=== PATIENT | male | born 1960 | race Caucasian/White ===

== ENCOUNTER 2018-05-29 21:11 | Inpatient (IN) | payer MEDICARE ==
[~2018-05-29] VITALS: Ht 170.2 cm; Wt 86.0 kg
[~2018-05-29 21:11] MED LIST: FLEXERIL PO; NORCO 5-325 TA1 EAC1 PO
[2018-05-29 21:23] VITALS: BP 120/72
[2018-05-29] MEDS ORDERED: NEURONTIN 300300 M1 PO (21:29)
[2018-05-29] MEDS ORDERED: DICLOFENAC SODI25 MG PO (21:29)
[2018-05-29] MEDS ORDERED: FLEXERIL PO (21:30)
[2018-05-29 22:04] LABS: HEMATOCRIT 44.3 % (42.0-52.0); HEMOGLOBIN 14.6 gm/dL (14.0-18.0); MCH 30.2 pg (26.0-34.0); MCV 91.5 fL (80.0-100.0); MPV 9.2 fl. (7.2-11.1); NUCLEATED RBCS 0 /100WBC; PLATELET COUNT* 217 thou/uL (150-400); RBC 4.84 mil/uL (4.50-6.00); RDW-CV 13.8 % (10.5-14.5); WBC 18.9 thou/uL (4.0-11.0)
[2018-05-29 22:11] LABS: INR 1.1; PROTIME 11.1 Seconds (9.20-11.50)
[2018-05-29 22:12] LABS: CALCIUM 8.4 mg/dL (8.5-10.1); CREATININE 1.4 mg/dL (0.6-1.3); POTASSIUM 3.5 mmol/L (3.5-5.1)
[2018-05-29 22:16] LABS: ALBUMIN 2.9 g/dL (3.4-5.0); TOTAL BILIRUBIN 0.5 mg/dL (<0.1-1.0); TOTAL PROTEIN 7.1 g/dL (6.4-8.2)
[2018-05-29 22:26] LABS: URINE BILIRUBIN NEGATIVE (Negative); URINE BLOOD TRACE (Negative); URINE CLARITY CLEAR; URINE COLOR YELLOW; URINE GLUCOSE-RANDOM NEGATIVE (Negative); URINE KETONES NEGATIVE (Negative); URINE LEUKOCYTES-REFLEX NEGATIVE (Negative); URINE NITRITE-REFLEX NEGATIVE (Negative); URINE PROTEIN 1+ (Negative); URINE SPECIFIC GRAVITY 1.025 (1.005-1.030); URINE UROBILINOGEN 0.2 E.U./dl (0.2-1.0)
[2018-05-29 23:37] LABS: ABSOLUTE LYMPHOCYTES 0.8 thou/uL (0.8-5.3); ABSOLUTE MONOCYTES 1.1 thou/uL (0.0-1.2); ANISOCYTOSIS Occasional; PLATELET ESTIMATE ADEQUATE; TOXIC GRANULATION 1+
[2018-05-30] VITALS (7 sets, daily range): BP systolic 108–123; BP diastolic 52–67
[2018-05-30] MEDS ORDERED: GABAPENTIN 100100 MG PO (01:15)
--- NOTE | 2018-05-30 03:38 | NUR ---
PT ARRIVED FROM ED AT AROUND 0100. PT WAS ACCOMPANIED BY SOME FAMILY, ABLE TO WALK TO THE BED WITH SOME LIMPING NOTED FROM PT LEFT KNEE. ABLE TO MAKE NEEDS KNOWN, ANSWERED QUESTIONS APPROPRIATELY. C/O ABDOMINAL PAIN AND SOME ABDOMINAL SWELLING NOTED. PRN PAIN MEDICATIONS GIVEN PER P.O. WILL CONTINUE TO MONITOR.
[2018-05-30 05:11] LABS: HEMOGLOBIN 13.5 gm/dL (14.0-18.0); MCH 30.1 pg (26.0-34.0); MCV 91.3 fL (80.0-100.0); MPV 9.4 fl. (7.2-11.1); RBC 4.49 mil/uL (4.50-6.00); RDW-CV 13.4 % (10.5-14.5); WBC 16.1 thou/uL (4.0-11.0)
[2018-05-30 05:38] LABS: ALBUMIN 2.5 g/dL (3.4-5.0); CALCIUM 7.4 mg/dL (8.5-10.1); CREATININE 1.1 mg/dL (0.6-1.3); POTASSIUM 3.6 mmol/L (3.5-5.1); TOTAL BILIRUBIN 0.5 mg/dL (<0.1-1.0); TOTAL PROTEIN 5.3 g/dL (6.4-8.2)
--- NOTE | 2018-05-30 10:32 | EKG ---
[place] [address] ELECTROCARDIOGRAM REPORT Name: NITO POZO Room: [address] ADM IN .R.#: [id number] Admission: 05/30/18 Attend Phys: Juan Jaramillo MD Discharge: Date of : 58 Report #: [id number] THIS REPORT FOR: //name// [facility] ED Test Date: 2018-05-29 Test Time: 22:07:22 Pat Name: NITO POZO Department: Room: [facility] Gender: M Search Developer: : 1960 Requested By: Malka Valladares Order Number: [id number] MD: Rob Garcia Measurements Intervals [place] Rate: 85 P: 75 LA: 154 QRS: 57 QRSD: 99 T: 1 QT: 353 QTc: 420 Interpretive Statements Sinus rhythm Compared to ECG 12/30/2015 10:31:08 No significant changes Electronically Signed On 05-30-2018 10:32:49 CDT by Rob Garcia [email or web address] <ELECTRONICALLY SIGNED> By: Rob Garcia MD, [facility] 05/30/18 1032 06 06 Rob Garcia MD, FACC /EPI
--- NOTE | 2018-05-30 11:18 | NUR ---
RECEIVED REPORT FROM BRITT PERERA. ASSUMED CARE OF PT AROUND 0730. PT A&O X4. VSS, SLIGHT TEMP OF 100.4 NOTED. O2 SAT 93% ON 2L PER NC. EXCELSIOR MACHINE TENDER IN PLACE TRACING SR. AM ASSESSMENT AND VITALS COMPLETED CHARTED. IV TO LEFT AC INTACT AND INFUSING IVF. PT REPORTS ABDOMINAL PAIN 10/10, IV PAIN MEDICATION GIVEN WITH LITTLE RELIEF. BELLY FIRM, DISTENDED AND TENDER. BOWEL SOUNDS PRESENT IN ALL 4 QUADRANTS. FAMILY AT BEDSIDE. PT NPO FOR SURGERY TODAY. PT ABLE TO USE URINAL AT THE BEDSIDE. PACU ARRIVED TO TRUCK ASSEMBLER PT AROUND 1115 - ANTIBIOTICS SENT. CONSENTS IN CHART. PREOPERATIVE CHECKLIST COMPLETE. WILL AWAIT PT RETURN TO UNIT.
--- NOTE | 2018-05-30 11:44 | NUR ---
Pt is A&O. Resides at home with his . Independent with ADLS. No DME. No hx of HH or SNF. Supportive family. Surgery today. Goal is home at dc. Following.
[2018-05-30 16:37] LABS: URINE BILIRUBIN NEGATIVE (Negative); URINE BLOOD 3+ (Negative); URINE COLOR YELLOW; URINE GLUCOSE-RANDOM NEGATIVE (Negative); URINE KETONES NEGATIVE (Negative); URINE LEUKOCYTES-REFLEX TRACE (Negative); URINE NITRITE-REFLEX NEGATIVE (Negative); URINE PROTEIN TRACE (Negative); URINE SPECIFIC GRAVITY 1.015 (1.005-1.030); URINE UROBILINOGEN 0.2 E.U./dl (0.2-1.0)
[2018-05-30 16:38] LABS: URINE CLARITY HAZY
[2018-05-30 16:45] LABS: SQUAMOUS 4-10 Moderate /LPF (0-3); WBC CLUMPS Few (None Seen)
[2018-05-30 16:46] LABS: BACTERIA-REFLEX 1-9 Few /HPF (None Seen); CASTS None Seen /LPF (None Seen); CRYSTALS None Seen /LPF (None Seen); MUCUS None Seen strn/LPF (None Seen); URINE RBC >20 Many /HPF (0-2); URINE WBC-REFLEX 6-15 Few /HPF (0-5)
--- NOTE | 2018-05-30 19:58 | NUR ---
PT RETURNED FROM PACU AROUND 1442. VSS. CONTINUOUS O2 SATURATION IN PLACE, 02 SATS >90% ON 3L PER NC. IV TO LEFT WRIST INTACT AND INFUSING IVF. BURLAP SPREADER PLACED TRACING SR. PT REPORTS PAIN TO ABDOMEN AND HAS RECEIVED IV PAIN MEDICATION WITH PARTIAL RELIEF. PT ENCOURAGED TO GET OUT OF BED TO FACILITATE PASSING GAS AND EASE SORENESS. PT ABLE TO AMBULATE TO BATHROOM WITH ASSITANCE AND OXYGEN DURING SHIFT CHANGE TO VOID. FAMILY AT BEDSIDE. PT REMAINS NPO EXCEPT ICE CHIPS DUE TO BOWEL ILLEUS. 3 LAP SITES TO ABDOMEN NOTED - NO S/S OF INFECTION. BELLY REAMINS DISTENDED AND TENDER, BOWEL SOUNDS PRESENT. PT CURRENTLY RESTING IN BED. FALL PRECAUTIONS IN PLACE. CALL LIGHT IS WITHIN REACH. HOURLY ROUNDING PERFORMED.
[2018-05-31] VITALS: BP 113/66
[2018-05-31 04:00] VITALS: BP 112/65
[2018-05-31 04:36] LABS: ABSOLUTE LYMPHOCYTES 0.4 thou/uL (0.8-5.3); ABSOLUTE MONOCYTES 1.6 thou/uL (0.0-1.2); ABSOLUTE NEUTROPHILS 11.2 thou/uL (1.6-8.1); BASOPHILS 0.1 %; HEMATOCRIT 38.7 % (42.0-52.0); HEMOGLOBIN 12.8 gm/dL (14.0-18.0); LYMPHOCYTES 2.9 %; MCH 30.7 pg (26.0-34.0); MCHC 33.1 g/dL (28.0-37.0); MCV 92.5 fL (80.0-100.0); MONOCYTES 12.1 %; MPV 9.2 fl. (7.2-11.1); NUCLEATED RBCS 0 /100WBC; PLATELET COUNT* 224 thou/uL (150-400); POLYS 84.9 %; RBC 4.18 mil/uL (4.50-6.00); RDW-CV 13.7 % (10.5-14.5); WBC 13.2 thou/uL (4.0-11.0)
[2018-05-31 04:48] LABS: CALCIUM 7.5 mg/dL (8.5-10.1); POTASSIUM 4.5 mmol/L (3.5-5.1)
--- NOTE | 2018-05-31 06:32 | NUR ---
ASSUMED PT CARE AT 1930. NURSING ASSESSMENT COMPLETED AT START OF SHIFT. PT TRACING SINUS RHYTHM ON BLIND INSTALLER. PRN PAIN MEDICATION ADMINISTERED X2 THIS SHIFT. PT UP TO BATHROOM X1 THIS SHIFT WITH WALKER. CALL LIGHT WITHIN REACH, FLUIDS INFUSING. NO CONCERNS VOICED THIS SHIFT.
[2018-05-31 08:00] VITALS: BP 122/77
--- NOTE | 2018-05-31 11:41 | NUR ---
CONTINUE TO FOLLOW, PT STATES HAVING SOME PAIN TODAY, LYING IN BED. ENCOURAGED HIM TO TRY TO TCDB Q2HR AND GAVE HIM A SPLINT BLANKET. PT STATES HE LIVES WITH HIS AND 3 CHILDREN. HE PLANS TO RETURN HOME AT [place]. WILL FOLLOW
[2018-05-31 16:14] VITALS: BP 130/65
--- NOTE | 2018-05-31 18:54 | NUR ---
PATINET RESTING IN BED. UP WITH ASSSIT X1 AND WALKER USAGE. VITAL SIGNS STABLE AND ABD SURGICAL WOUNDS CLEAN/DRY/INTACT WITH NO DRAINAGE. PATINET DID HAVE LARGE BOWEL MOVEMENT TO AND DIET WAS ADVANCED TO CLEAR LIQUID. HOURLY ROUNDING COMPLETD FOR PATIENT SAETY
[2018-05-31 20:00] VITALS: BP 140/82
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
[2018-06-01] VITALS: BP 139/74
[2018-06-01 04:43] LABS: HEMATOCRIT 39.1 % (42.0-52.0); HEMOGLOBIN 12.8 gm/dL (14.0-18.0); MCH 30.3 pg (26.0-34.0); MCHC 32.8 g/dL (28.0-37.0); MCV 92.4 fL (80.0-100.0); MPV 8.9 fl. (7.2-11.1); NUCLEATED RBCS 0 /100WBC; PLATELET COUNT* 249 thou/uL (150-400); RBC 4.24 mil/uL (4.50-6.00); WBC 9.9 thou/uL (4.0-11.0)
[2018-06-01 05:01] LABS: ALBUMIN 2.2 g/dL (3.4-5.0); CALCIUM 7.7 mg/dL (8.5-10.1); POTASSIUM 4.5 mmol/L (3.5-5.1); TOTAL BILIRUBIN 0.4 mg/dL (<0.1-1.0); TOTAL PROTEIN 5.6 g/dL (6.4-8.2)
--- NOTE | 2018-06-01 05:54 | NUR ---
ASSUMED PT CARE AT 1930. NURSING ASSESSMENT COMPLETED AT START OF SHIFT. PT VOICED NO CONCERNS THIS SHIFT. HOURLY ROUNDING COMPLETED. PT CONTINUES ON LOOM OVERHAULER, TRACING SINUS RHYTHM, PRN PAIN MEDICATION ADMINISTERED THIS SHIFT, SEE EMAR FOR DOCUMENTATION. FALL PRECAUTIONS IN PLACE. ABDOMINAL LAP SITES CDI, NO S/S OF INFECTION. CALL LIGHT WITHIN REACH.
[2018-06-01 05:55] LABS: ABSOLUTE LYMPHOCYTES 1.3 thou/uL (0.8-5.3); ABSOLUTE MONOCYTES 0.8 thou/uL (0.0-1.2); ABSOLUTE NEUTROPHILS 7.8 thou/uL (1.6-8.1); ANISOCYTOSIS 1+; PLATELET ESTIMATE ADEQUATE; POIKILOCYTOSIS 1+
[2018-06-01 08:00] VITALS: BP 138/71
--- NOTE | 2018-06-01 10:00 | NUR ---
VSS, ASSUMED CARE IN AM, ASSESSMENT PERFORMED AND CHARTED, FALL PRECAUTIONS IN PLACE AND CALL LIGHT IN PLACE, PT IS A&O4 ON 1L NC AND IS MED-SURG STATUS, PT HAS PAIN IN ABDOMINE, IS UP WITH ONE AND WALKER, PT GOAL IS TO IMPROVE BREATHING AND COME OFF O2 NEEDS, AND SIT UP IN CHAIR, WILL FOLLOW WITH PLAN OF CARE.
[2018-06-01 12:00] VITALS: BP 115/95
[2018-06-01 16:29] VITALS: BP 149/83
--- NOTE | 2018-06-01 18:08 | PATH ---
[address] [address] PATHOLOGY RPT PROCEDURE Name: JOHNNY POZO Room: [address] IN ..#: [id number] Admission: 05/30/18 Date of : 58 Discharge: Report #: [id number] Path Case #: [id number] [facility] Accession Number: [id number] . 01 Material submitted: . APPENDIX . 01 Clinical history: . Ruptured appendix, ileus . 02 Diagnosis: Appendix: - Disrupted, acute gangrenous appendicitis, periappendicitis and serositis. . (RUBI:mml; 06/01/18) [facility]/06/01/2018 . 02 Electronically signed: . Terry Medina MD, Pathologist NPI- [id number] . 01 Gross description: . Received in formalin labeled "Johnny Pozo, appendix" is a disrupted, ragged, red maroon, and garcia appendix received in 2 segments (3.7 x 2.0 cm and 5.5 x 2.5 cm). The shorter segment is consistent with distal half and the longer, proximal half. There is prominent serosal exudate. Sectioning the smaller fragment reveals dark red and yellow parenchyma with no obvious lumen identified. The longer segment shows Probable obliteration (perforation) of the distal segment. Sectioning reveals marked transmural necrosis. The mucosa is sherman-black and focally green. The margin is inked black and the distal end blue. Board Certified Arts Therapist sections are submitted A1-A3. JBR/JBR . 02 Pathologist provided ICD-10: K35.80 . 02 CPT . 362492 Performed at: [address], [place] [id number] MD Zafar Rose MD Phone: [phone] Performed at: 02 [facility] [address], [place], [place] [id number] MD Terry Medina MD Phone: [phone]
--- NOTE | 2018-06-01 18:59 | NUR ---
VSS, PT IS PROGRESSING TOWARDS GOAL, PT HAS BEEN UP IN CHAIR AND IS TOLERATING HIS DIET, PT HAS SOME PAIN IN BELLY, PT IS ON RA NOW AND IS MED-SURG STATUS, HOURLY ROUNDS COMPLETED. PT IS UP WITH ONE AND WALKER
[2018-06-01 19:51] VITALS: BP 139/65
[2018-06-02] VITALS: BP 142/85
--- NOTE | 2018-06-02 06:02 | NUR ---
END SHIFT: PT PROGRESSING TOWARDS GOALS WELL. ABLE TO GET IN AND OUT OF BED WITHOUT ASSISTANCE. VOIDING WITHOUT DIFFICULTY. POSITIVE BS X4 QUADS, PASSING GAS FREQUENTLY AND HAD LAST REGULAR BM YESTERDAY. PT IS TOLERATING SOFT FOODS WELL WITH NO N/V. PT STATES HE FEELS LIKE HE IS GETTING STRONGER AND IS READY TO GO HOME. PT STATES THAT HE HAS HIS AND OTHER FAMILY MEMBERS LIVING IN THE HOME THAT CAN HELP HIM UNTIL HE FULLY RECOVERS. VSS. AFEBRILE. INCISIONS ARE CDI, AND OOT WITH NO OOZING. NAVEL INCISION IS A LITTLE REDDENED AND WARM TO TOUCH IN SURROUNDING TISSUE. PERFORMED HOURLY ROUNDING. SAFETY PRECAUTIONS IN PLACE. CALL LIGHT IN REACH. WILL CONT TO MONITOR.
--- NOTE | 2018-06-02 07:42 | OP ---
[address] [address] OPERATIVE REPORT Name: NITO POZO Room: [address] IN M.R.#: [id number] Admission: 05/30/18 Attend Phys: Juan Jaramillo MD Discharge: Date of : 58 Report #: [id number] THIS REPORT FOR: //name// CC: Lisset Jaramillo DATE OF SERVICE: 05/30/2018 PREOPERATIVE DIAGNOSIS: Perforated appendicitis. POSTOPERATIVE DIAGNOSIS: Perforated appendicitis. OPERATIVE PROCEDURE: Laparoscopic appendectomy with drainage of intra-abdominal abscess. ANESTHESIA: General endotracheal with 0.5% Marcaine infiltrated in the wound site. DESCRIPTION OF PROCEDURE: The patient was placed under general endotracheal anesthesia, and the abdomen was shaved, prepped and draped in a sterile fashion. A timeout taken. Antibiotics administered. I began by infiltrating in the infraumbilical crease with 0.5% Marcaine. I then used the pickups and made a transverse incision in the infraumbilical crease and used pickups and cautery to dissect down to the anterior abdominal wall with the aid of S retractors. The fascia was lifted up, cleared with cautery and then divided with a fresh scalpel blade and then blunt dissection with a mosquito into the peritoneal cavity was accomplished without injury to underlying abdominal viscera. An 0 PDS was looped through this incision site, and a size 12 Shane trocar was placed into the peritoneal cavity and secured at the skin. Insufflation with carbon dioxide was completed and a 5 mm 0 degree scope was inserted. The right lower quadrant was inspected and had some purulence and adhesions from the ruptured appendix. The right upper abdomen infiltrated with 0.5% Marcaine, made a small stab and incision there and placed a 5 mm trocar there and with the aid of the irrigating device and the camera, I was able to tease away the right lower quadrant tissues to unroof the inflamed appendix and tease away enough clearance to the suprapubic area to place a third port, which was then again infiltrated in the suprapubic region. A small stab incision and a 5 mm bladeless trocar were placed at the operative site. The patient then was placed in Trendelenburg and left lateral decubitus position. The appendix, which was necrotic at its tip, but still inflamed at its base and at the cecal junction, was slowly and carefully teased and manipulated. Using a ligature, I dissected the mesoappendix until the appendix could be lifted up and the appendiceal cecal base could be completely exposed. Endo-RICKY 30 was brought on to the field with a white load placed across the base of the appendiceal cecal junction and carefully fired freeing the appendix from its attachment. I then removed the stapler, brought in an Endopouch and placed the appendix [place] [address] OPERATIVE REPORT Name: NITO POZO Room: [address] IN ..#: [id number] Admission: 05/30/18 Attend Phys: Juan Jaramillo MD Discharge: Date of : 58 Report #: [id number] and placed it in the pouch, closed it and retrieved it from the umbilical incision site. Then, I replaced the trocar and then inspected the abdomen and did 1500 mL irrigation of the lower abdomen and upper abdomen and aspirated as much of the free fluid as I could and the fluid started coming back clear. I ended by irrigation. I then removed all trocars, instruments, deflated pneumoperitoneum and placed the patient back in neutral position. The 0 PDS was tied and then infiltrated with 0.5% Marcaine. The four incisions were then closed with buried 4-0 PDS sutures and sealed with Dermabond. ESTIMATED BLOOD LOSS: 10 mL. Sponge, instrument counts correct. The patient was returned to recovery in stable condition. <ELECTRONICALLY SIGNED> By: Marielena Pompa MD 06/02/18 0742 1329 [id number] Pompa MD /deny
[2018-06-02 08:00] VITALS: BP 159/79
--- NOTE | 2018-06-02 10:38 | NUR ---
ASSUMED CARE OF PT THIS AM AROUND 714- MED SURG STATUS IN PLACE AND MAINTAINED- UPON ASSESSMENT PT NOTED TO BE RESTING IN BED- PT A&O X4- CONTINENT OF BOWEL AND BLADDER- UP SBA WITH RW FOR SAFETY- LCTA, RESP EVEN AND UN-LABORED- VSS, O2 SAT 95% ON RA- ABDOMEN SOFT/ROUND/SLIGHT TENDERNESS NOTED- 3 ABD INCISSIONS NOTED, TERRA AND HEALING WELL-PT REPORTS TO HAVE HAD BM THIS AM- IV NOTED TO LEFT FA INTACT, IVF INFUSSING PRESCIBED- IV ABT GIVEN PRESCIBED-DIET ADVANCED TO REGULAR THIS AM, GOOD PO INTAKE NOTED WITH BREAKFAST- PT DENIES ANY C/O PAIN/DISCOMFORT AT THIS TIME- CALL LIGHT AND PERSONAL BELONGINGS WITH IN REACH- HOURLY ROUNDS IN PLACE R/T SAFETY/NEEDS- ALL NEEDS MET AT THIS TIME-WCTM
[2018-06-02 10:59] VITALS: BP 159/79
--- NOTE | 2018-06-02 14:36 | NUR ---
CONTINUE TO FOLLOW, MET WITH PT AND FAMILY. STATES FEELING MUCH BETTER AND HOPES TO GO HOME TOMORROW. PT HAS GOOD FAMILY SUPPORT AND DENIES DC NEEDS.
[2018-06-02 15:50] VITALS: BP 142/81
--- NOTE | 2018-06-02 17:32 | NUR ---
PT CURRENTLY RESTING IN BED, EATING DINNER- FAMILY AT SIDE VISITING- M/S STATUS IN PLACE AND MAINTAINED- GOOD PO INTAKE NOTED WITH MEALS THIS SHIFT, REPORTS TO BE TOLERATING REGULAR DIET WELL- UP TO CHAIR WITH MEALS THIS SHIFT, TOLERATING WELL- PO PRN HYDROCODONE STARTED THIS SHIFT- PRN HYDROCODONE GIVEN AT 1430 FOR REPORTED ABD PAIN- PT REPORTS PO PAIN MEDICATIONS TO BE WORKING WELL- CALL LIGHT AND PERSONAL BELONGINGS WITH IN REACH- ALL NEEDS MET AT THIS TIME-WCTM
[2018-06-02 20:00] VITALS: BP 152/85
[2018-06-03] VITALS: BP 158/81
--- NOTE | 2018-06-03 04:19 | NUR ---
ASSUMED PT CARE AT 1930. ASSESSMENT COMPLETED CHARTED. C/O STOMACH PAIN AND GAVE PRN PAIN MEDICATION. UP WITH STANDBY, ABLE TO MAKE NEEDS KNOWN, WILL CONTINUE TO MONITOR.
[2018-06-03 08:00] VITALS: BP 144/81
--- NOTE | 2018-06-03 09:21 | NUR ---
ASSUMED PT CARE AT 0730, FULL ASSESMENT DONE CHARTED.PT A/O X4, C/O SOME PAIN IN ABDOMEN AT 4/10, PAIN MEDS CONTROLING IT WELL. PT REPORTS STOOLS EVERY DAY POST OP WITH SOME LOOSE STOOLS AND PASSING GAS. GOOD APITITE, TOLERATING FOOD WELL. PTS VSS, M/S STATUS, PT HOPES TO GO HOME TODAY, ASKING FOR PAIN MED SCRIPT. FALL PRECAUTIONS IN PLACE, CALL LIGHT IN REACH. WILL CONTINUE WITH PLAN OF CARE
[2018-06-03 11:56] VITALS: BP 144/84
[2018-06-03] MEDS ORDERED: AUGMENTIN 875-1 EACH PO (11:56)
[2018-06-03] MEDS ORDERED: NORCO 5-325 TA1 EACH PO (12:30)
--- NOTE | 2018-07-06 12:30 | CON ---
[address] [address] CONSULTATION Name: NITO POZO Room: [address]#: [id number] Admission: 05/30/18 Attend Phys: Juan Jaramillo MD Discharge: 06/03/18 Date of : 58 Report #: [id number] THIS REPORT FOR: //name// CC: Lisset Jaramillo DATE OF SERVICE: 05/30/2018 ADMITTING DIAGNOSES: Abdominal pain, appendicitis. HISTORY OF PRESENT ILLNESS: The patient is a 57-year-old gentleman who presented to the Emergency Department on 05/29/2018 with history of 3 days of abdominal pain and distention, then localization to the right lower quadrant. PAST MEDICAL AND SURGICAL HISTORY: Only notable for chronic back pain and he has had surgical history of back surgery. MEDICATIONS: Include Voltaren, Neurontin, and Flexeril. ALLERGIES: He has no known drug allergies. SOCIAL HISTORY: Some tobacco usage. PHYSICAL EXAMINATION: GENERAL: He is a modestly obese, well-developed male. HEAD, EARS, EYES, NOSE, AND THROAT: Unremarkable. NECK: Supple. LUNGS: Clear. CARDIAC: Regular rate and rhythm without murmur. ABDOMEN: Some right lower quadrant tenderness, but no severe guarding. EXTREMITIES: No cyanosis or pitting edema. LABORATORY DATA: Upon presentation, CBC with white blood cell count of 18.9, hemoglobin 14.6, hematocrit 44.3, platelet count of 217,000. His electrolyte panel: Sodium of 134, potassium 3.5, chloride 95, carbon dioxide 29, BUN 47, creatinine 1.4, glucose of 125. His liver function studies were unremarkable. His urinalysis was negative and his imaging showed a chest x-ray with some atelectasis and a CT scan of the abdomen showing a renal cyst and dilated loops and small amount of fluid in the pelvis with an inflamed appendix consistent with ruptured appendicitis. IMPRESSION: A 57-year-old gentleman who presents with diagnosis of appendicitis, possible rupture. PLAN: I have talked to the patient about laparoscopic appendectomy[place] [address] CONSULTATION Name: NITO POZO Room: [address] IN [facility]#: [id number] Admission: 05/30/18 Attend Phys: Juan Jaramillo MD Discharge: 06/03/18 Date of : 58 Report #: [id number] associated risks and benefits and answered his questions. He understands those risks and benefits and wishes to proceed with my care. <ELECTRONICALLY SIGNED> By: Marielena Pompa MD 07/06/18 1230 0929 193Marielena Pompa MD /nt
== END 2018-06-03 12:55 | disposition home or self-care (01) | DRG 338 ==
LOC: M.ERS 21:11 → M.2W 05-30 00:01 → M.TBA-ER 05-30 00:01 → M.2W 05-30 00:18
PROVIDERS: Emergency Medicine; Internal Medicine
PROC: 0DTJ4ZZ Resection of Appendix, Percutaneous Endoscopic Approach (ICD-10-PCS; principal; 2018-05-30)
PROC: 0W9G4ZZ Drainage of Peritoneal Cavity, Percutaneous Endoscopic Approach (ICD-10-PCS; principal; 2018-05-30)
DX: K35.2 Acute appendicitis with generalized peritonitis (principal); N17.0 Acute kidney failure with tubular necrosis; R65.11 Systemic inflammatory response syndrome (SIRS) of non-infectious origin with acute organ dysfunction; J98.11 Atelectasis; G89.29 Other chronic pain; M54.9 Dorsalgia, unspecified; K35.3 Acute appendicitis with localized peritonitis; F17.210 Nicotine dependence, cigarettes, uncomplicated; Z79.2 Long term (current) use of antibiotics; Z79.899 Other long term (current) drug therapy

== ENCOUNTER 2021-02-25 11:37 | Inpatient (IN) | payer MEDICARE ==
[~2021-02-25] VITALS: Ht 170.2 cm; Wt 105.8 kg
--- NOTE | ~2021-02-25 | EMS ---
[facility] [address] [place] [address] EMS Patient Care Report Name: NITO POZO Room: [address] Garret#: [id number] Admission: 02/25/21 Attend Phys: Augustine Constantino MD Discharge: Date of : 58 Report #: [id number] THIS REPORT FOR: //name// Report Transmitted: 02/25/2021 19:28 EMS Care Summary [facility] Incident [id number] @ 02/25/2021 10:33 Incident Location [address] [place] [address] Patient NITO POZO Male, 60 Years 1960 Patient Address [address] [place] [address] Patient History Other, Patient Allergies No known allergies, Patient Medications None Reported, Chief Complaint ankle injury Disposition Transported No Lights/Notus Dispatch Reason Traumatic Injury Transported To [facility] Narrative Dispatched mutual aid to a residence for 60 y/o male with an ankle injury. 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 Pt. states that he was walking down steps and "twisted" his left ankle. Pt. left ankle was swollen and bruised with an ice pack in place. Poss. deformity was not clear due to swelling. Pt. had good pulse and [facility] [address] [place] [address] EMS Patient Care Report Name: NITO POZO Room: [address]#: [id number] Admission: 02/25/21 Attend Phys: Augustine Constantino MD Discharge: Date of : 58 Report #: [id number] cap. refill to the left foot. Pt. stated his pain was 6/10 while at rest. Left foot and ankle were splinted prior to movement. En route IV was started. Pt. refused drugs for pain management. VS were stable. Pt. was transported to [place] for emergency services. Initial Vitals @PTAP: 70,R: 20,BP: 140/90,Pain: 6/10,GCS: 15,SpO2: 94,Revised Trauma: 12, @11:05P: 70,R: 16,BP: 144/88,Pain: 6/10,GCS: 15,SpO2: 96,Revised Trauma: 12, @11:20P: 68,R: 16,BP: 135/92,Pain: 7/10,GCS: 15,SpO2: 95,Revised Trauma: 12, Assessments @10:57MENTAL:No Abnormalities,SKIN:No Abnormalities,HEENT:Head/Face: No Abnormalities,Eyes: No Abnormalities,Neck/Airway: No Abnormalities,LUNG SOUNDS:General: No Abnormalities,Left Upper: No Abnormalities,Right Upper: No Abnormalities,Left Lower: No Abnormalities,Right Lower: No Abnormalities,ABDOMEN:General: No Abnormalities,Left Upper: No Abnormalities,Right Upper: No Abnormalities,Left Lower: No Abnormalities,Right Lower: No Abnormalities,PELVIS//GI:No Abnormalities,EXTREMITIES:Left Leg: Other,Capillary Refill: Left Lower: < 2 Sec,Left Arm: No Abnormalities,Right Arm: No Abnormalities,Right Leg: No Abnormalities,PULSE:Pedal: 2+ Normal,NEURO:No Abnormalities, Impression Injury of Ankle Procedures @11:08Saline Lock 10cc (20 ga) Site: Forearm-LeftResponse: UnchangedSucceeded@11:00Splint Fx/Disloc.Response: ImprovedSucceeded Timeline [employer],BP: 140/90 M,PULSE: 70,RR: 20 R,SPO2: 94 Ox,ETCO2: ,BG: ,PAIN: 6,GCS: 15, 10:31,Call Received 10:33,Dispatched 10:33,En Route 10:55,On Scene 10:57,At Patient 11:00,Splint Fx/Disloc.,Response: ImprovedSucceeded, 11:05,BP: 144/88 M,PULSE: 70,RR: 16 R,SPO2: 96 Ox,ETCO2: ,BG: ,PAIN: 6,GCS: 15, 11:06,Depart Scene 11:08,Saline Lock 10cc 20 ga Site: Forearm-Left,Response: UnchangedSucceeded, 11:20,BP: 135/92 M,PULSE: 68,RR: 16 R,SPO2: 95 Ox,ETCO2: ,BG: ,PAIN: 7,GCS: 15, 11:34,At Destination 11:38,Transfer Patient 12:09,Call Closed 12:09,[place] [address] EMS Patient Care Report Name: NITO POZO Room: [address] [place].#: [id number] Admission: 02/25/21 Attend Phys: Augustine K. Dougie, MD Discharge: Date of : 58 Report #: [id number] Disclaimer v1.1 Copyright 202 [employer] This EMS Care Summary contains data elements from the applicable legal record (which may be displayed differently). It is designed to provide pertinent information for the following purposes: continuity of care, clinical quality, and state data reporting. The complete legal record is available to ED staff and administrators of the receiving hospital in [employer]'s Patient Tracker. All data is provided "as is."
[~2021-02-25 11:37] MED LIST changes: +AUGMENTIN 875-1 EACH PO; +DICLOFENAC SODI25 MG PO; +GABAPENTIN 100100 MG PO; +NEURONTIN 300300 M1 PO; +NORCO 5-325 TA1 EACH PO
[2021-02-25 11:40] VITALS: BP 158/77
[2021-02-25 12:57] LABS: ABSOLUTE EOSINOPHILS 0.1 thou/uL (0.0-0.7); ABSOLUTE LYMPHOCYTES 0.9 thou/uL (0.8-5.3); ABSOLUTE MONOCYTES 0.8 thou/uL (0.0-1.2); ABSOLUTE NEUTROPHILS 5.1 thou/uL (1.6-8.1); BASOPHILS 0.7 %; EOSINOPHILS 1.7 %; HEMATOCRIT 40.2 % (42.0-52.0); HEMOGLOBIN 13.1 gm/dL (14.0-18.0); LYMPHOCYTES 12.6 %; MCH 29.3 pg (26.0-34.0); MCHC 32.5 g/dL (28.0-37.0); MCV 90.1 fL (80.0-100.0); MPV 8.2 fl. (7.2-11.1); NUCLEATED RBCS 0 /100WBC; PLATELET COUNT* 238 thou/uL (150-400); RBC 4.46 mil/uL (4.50-6.00); RDW-CV 13.8 % (10.5-14.5); WBC 6.8 thou/uL (4.0-11.0)
[2021-02-25 13:01] VITALS: BP 140/78
[2021-02-25 13:06] LABS: CALCIUM 8.4 mg/dL (8.5-10.1); POTASSIUM 4.4 mmol/L (3.5-5.1)
[2021-02-25 13:07] LABS: INR 1.1; PROTIME 11.8 Seconds (9.20-11.50)
[2021-02-25 13:10] LABS: ALBUMIN 3.8 g/dL (3.4-5.0); TOTAL BILIRUBIN 0.3 mg/dL (<0.1-1.0); TOTAL PROTEIN 7.1 g/dL (6.4-8.2)
--- NOTE | 2021-02-25 15:53 | EKG ---
[place] [address] ELECTROCARDIOGRAM REPORT Name: NITO POZO Room: [address] IN [facility]#: [id number] Admission: 02/25/21 Attend Phys: Augustine Constantino, Discharge: Date of : 58 Date of Service: 02/25/21 1236 Report #: [id number] THIS REPORT FOR: //name// [facility] ED Test Date: 2021-02-25 Test Time: 12:36:15 Pat Name: NITO POZO Department: Room: Gender: M Outside Production Inspector: CCD : 1960 Requested By: Jeancarlos Porras Order Number: [id number] MD: Rob Garcia Measurements Intervals [place] Rate: 71 P: 54 VT: 198 QRS: 56 QRSD: 90 T: 37 QT: 383 QTc: 417 Interpretive Statements Sinus rhythm Compared to ECG 05/29/2018 22:07:22 No significant changes Electronically Signed On 02-25-2021 15:52:59 CDT by Rob Garcia [email or web address] <ELECTRONICALLY SIGNED> By: Rob Garcia MD, [facility] 02/25/21 1552 1236 1236 Rob Garcia MD, [facility] /EPI
[2021-02-25 19:48] VITALS: BP 131/75
[2021-02-25 23:40] VITALS: BP 129/74
--- NOTE | 2021-02-26 05:10 | NUR ---
PT A&OX4, VSS ON ROOM AIR, IV FLUIDS INFUSING ORDERED, PT NWB TO LLE. PAIN MEDS REQUESTED AND GIVEN ORDERED. PT VOIDING WITHOUT DIFFICULTY. DRSG TO LLE WITH DRAINAGE, DRSG REINFORCED. PT RESTING IN BED, WILL CONTINUE TO MONITOR.
[2021-02-26 06:10] LABS: ABSOLUTE LYMPHOCYTES 0.8 thou/uL (0.8-5.3); ABSOLUTE MONOCYTES 1.1 thou/uL (0.0-1.2); ABSOLUTE NEUTROPHILS 9.1 thou/uL (1.6-8.1); BASOPHILS 0.1 %; HEMATOCRIT 36.7 % (42.0-52.0); HEMOGLOBIN 11.8 gm/dL (14.0-18.0); LYMPHOCYTES 7.6 %; MCH 29.1 pg (26.0-34.0); MCHC 32.2 g/dL (28.0-37.0); MCV 90.5 fL (80.0-100.0); MONOCYTES 9.8 %; MPV 8.6 fl. (7.2-11.1); NUCLEATED RBCS 0 /100WBC; PLATELET COUNT* 245 thou/uL (150-400); POLYS 82.5 %; RBC 4.05 mil/uL (4.50-6.00); RDW-CV 13.5 % (10.5-14.5)
[2021-02-26 06:22] LABS: CALCIUM 8.6 mg/dL (8.5-10.1); CREATININE 1.1 mg/dL (0.6-1.3); POTASSIUM 4.3 mmol/L (3.5-5.1)
[2021-02-26] MEDS ORDERED: HYDROCODON-ACE1 EAC7 PO (07:15)
[2021-02-26] MEDS ORDERED: ASPIRIN325 PO (07:15)
[2021-02-26 08:00] VITALS: BP 127/69
[2021-02-26 12:07] VITALS: BP 129/74
[2021-02-26 12:08] VITALS: BP 129/74
--- NOTE | 2021-02-26 13:51 | NUR ---
Pt is A&O. Resides at home with . Independent, but states that someone is with him 24/05, Pt has a hx of collapsing randomly. Pt has a walker and wc at home, Pt uses rollator in the home and cane in the community. No home o2. No hx of HH or SNF. Goal is home at dc, no needs. Anticipate dc today, Pt declined HH.
--- NOTE | 2021-02-26 14:46 | NUR ---
THIS NURSE AGREES WITH ASSESSMENT
[2021-02-26 16:34] VITALS: BP 131/69
--- NOTE | 2021-02-26 17:27 | NUR ---
PATIENT RESTING ON RECLINER, EATING DINNER AND WATCHING TV. DRESSING TO LEFT ANKLE C/D/I. IV TO LEFT WRIST SALINE LOCKED, PATENT. DRESSING C/D/I. TRAMADOL GIVEN ORDERED FOR PAIN. ALL QUESTIONS AND CONCERNS ADDRESSED. WILL CONTINUE TO MONITOR.
[2021-02-26 19:38] VITALS: BP 118/73
[2021-02-26 23:59] VITALS: BP 149/66
[2021-02-27 08:00] VITALS: BP 132/75
[2021-02-27 13:20] VITALS: BP 129/74
--- NOTE | 2021-02-27 16:33 | NUR ---
After discussion this morning it was determined that pt did not go home yesterday because of the inability to pass stairs with PT. Pt and son state that they can get into the house without using stairs and do not want to do stairs with therapy again. Dr. Constantino in the room for the conversation and agrees. Pt OK to discharge without doing stairs. Pt plans to do outpatient therapy instead of home health. Pt was escorted out of the building by wheelchair by nursing staff.
[2021-02-27 16:44] VITALS: BP 129/74
--- NOTE | 2021-03-05 14:29 | OP ---
[address] [address] OPERATIVE REPORT Name: NITO POZO Room: [address] [place].#: [id number] Admission: 02/25/21 Attend Phys: Augustine Constantino MD Discharge: 02/27/21 Date of : 58 Report #: [id number] THIS REPORT FOR: cc: Lisset Howard Ahmad W. DO Orth, Charles DO ~ DOC #: [id number] Dictated by Dav Duval DO DATE OF SURGERY: 02/25/2021 SURGEON: Simon De Oliveira DO ASSISTANTS: 1. Dav Duval DO 2. Lucien Good DO PREOPERATIVE DIAGNOSIS: Left ankle trimalleolar fracture, closed. + POSTOPERATIVE DIAGNOSIS: Left ankle trimalleolar OPERATION PERFORMED: Open reduction internal fixation of left ankle trimalleolar fracture. INDICATIONS: The patient is a 60-year-old male who presented to the [place] ED following a fall he sustained within the previous 2 hours before his presentation. He notes twisting his ankle when he fell and hearing a pop. He was unable to return to weightbearing and unable to ambulate following this injury. Upon further evaluation in the ED, radiographs were obtained and demonstrate the left ankle trimalleolar fracture with displacement of the mortise joint. The risks, benefits, indications, contraindications to open reduction internal fixation of this fracture were all discussed with the patient. Risks include but are not limited to pain, infection, neurovascular injury, loss of reduction, hardware failure, malunion, nonunion, need for repeat procedure, reaction to implants, inability to return to prior functional levels, swelling, DVT/PE, myocardial arrhythmias, myocardial infarction, stroke, , as well as any and all risks attributable to general anesthesia. The patient verbalizes understanding of these risks and wishes to proceed with the operation as discussed. Informed consent was signed. PREOPERATIVE ANTIBIOTICS: Ancef 2 g IV. PROCEDURE IN DETAIL: The patient was met in the preoperative bay. Informed consent for the aforementioned procedure was obtained. He was transported back to the operative suite and onto a well-padded operative table. General anesthesia was induced. The left lower extremity was prepped and draped in the standard sterile fashion. A surgical timeout [place] [address] OPERATIVE REPORT Name: NITO POZO Room: [address]#: [id number] Admission: 02/25/21 Attend Phys: Augustine Constantino MD Discharge: 02/27/21 Date of : 58 Report #: [id number] correct patient, operative limb, operation to be performed. All present in the operative suite were in agreement with proceeding as indicated. Using fluoroscopic guidance, the fracture sites were marked initially laterally over the fibula. A longitudinal incision was made overlying the fibula centered over the fracture site with a scalpel through the dermis layer. Scissors were used to dissect bluntly and sharply down to the level of the periosteum. A scalpel was used to create a periosteal sleeve anteriorly and posteriorly over the fibula. The fracture site was exposed and thoroughly irrigated and debrided of all interposed tissue. Provisional reduction of the fibular fracture was obtained using [id number] clamps. A 6-hole fibular locking plate was placed laterally over the fibula following fracture reduction and provisionally secured into place with K-wires. The reduction and plate placement were confirmed using fluoroscopic guidance. The plate was then fixed to the fibula in this reduced position using locking screws in the distal segment and 2 cortical screws achieving bicortical purchase in the proximal segment. Fluoroscopic guidance was then used to confirm adequate reduction was maintained with adequate position of the plate. Attention was then turned to the medial aspect of the ankle for fixation of the medial malleolus fracture. Again, fluoroscopic was used to identify the level of the fracture. A 15 blade scalpel was then used to incise through the epidermis and dermis overlying the fracture site in a longitudinal fashion. Scissors were used to provide both blunt and sharp dissection down through the subcutaneous layers down to the level of the bone. Scalpel dissection was then used to elevate the periosteum anteriorly and posteriorly to expose the fracture site. The fracture was then thoroughly irrigated and debrided of all interposed tissue. The fracture was provisionally reduced and held into place with K-wires. Following confirmation of reduction on fluoroscopy, the medial malleolar fracture was then fixed using cannulated screws with compression by technique. These were 4-0 cannulated screws. We then returned laterally and placed 2 syndesmotic screws through the fibular plate and into the tibia achieving 3 cortices of fixation with both screws. These were cannulated 4.0 screws. A provisional K-wire pin was placed in the trajectory desired using fluoroscopic guidance. Once adequate position of the wires was confirmed under fluoroscopy, they were then drilled to the appropriate depth for screw placement. The 4-0 cannulated syndesmotic screws were then placed through the fibular plate tricortically through the tibia. Appropriate position was confirmed under fluoroscopic imaging. Following fixation of the fibular fracture, medial malleolus fracture and placement of the syndesmotic screws, the ankle was then stressed in external rotation and confirmed to be stable. The posterior malleolus segment was confirmed to be stable in its position as well and therefore not fixated with any instrumentation. The surgical reynolds were then thoroughly irrigated with normal saline. The periosteal sleeve was closed both medially and laterally over the exposed hardware with 0 Vicryl suture. The subcutaneous tissue was reapproximated with 2-0 Monocryl suture in a simple interrupted fashion and the skin layer was closed with a running 4-0 nylon suture. Dressings consisted of Xeroform, 4 x 4 [place] [address] OPERATIVE REPORT Name: NITO POZO Room: [address]#: [id number] Admission: 02/25/21 Attend Phys: Augustine Constantino MD Discharge: 02/27/21 Date of : 58 Report #: [id number] gauze, ABD padding, sterile soft roll followed by a nonsterile soft roll and a posterior Orthoglass splint was placed over the operative extremity. ESTIMATED BLOOD LOSS: 20 mL ANESTHESIA TYPE: General. The patient was then awoken from general anesthesia and transferred on to an inpatient bed and to PACU in stable condition. I attest that Dr. Simon De Oliveira was present in the operative suite for all critical parts of the procedure. Simon De Oliveira DO TT/TIM <ELECTRONICALLY SIGNED> By: Simon De Oliveira DO 03/05/21 [id number] [id number] De Oliveira DO /nt
== END 2021-02-27 15:30 | disposition home or self-care (01) | DRG 494 ==
LOC: M.ERS 11:37 → M.SUR 11:37 → M.ERS 13:05 → M.TBA 13:14 → M.ORTHSURG 13:14 → M.TBA 13:14 → M.ORTHSURG 18:59
PROVIDERS: Family Medicine; Student in an Organized Health Care Education/Training Program; ADMIT Internal Medicine; ATTEND Internal Medicine
PROC: 0QSH04Z Reposition Left Tibia with Internal Fixation Device, Open Approach (ICD-10-PCS; principal; 2021-02-25)
PROC: 0SSG0ZZ Reposition Left Ankle Joint, Open Approach (ICD-10-PCS; principal; 2021-02-25)
PROC: 0QSK04Z Reposition Left Fibula with Internal Fixation Device, Open Approach (ICD-10-PCS; principal; 2021-02-25)
DX: S82.852A Displaced trimalleolar fracture of left lower leg, initial encounter for closed fracture (principal); Z20.822 Contact with and (suspected) exposure to COVID-19; W10.8XXA Fall (on) (from) other stairs and steps, initial encounter; Y93.01 Activity, walking, marching and hiking; Y92.89 Other specified places as the place of occurrence of the external cause; Z79.899 Other long term (current) drug therapy; Z87.891 Personal history of nicotine dependence; Y99.8 Other external cause status